=== PATIENT | female | born 1975 | race Two or more races ===

== ENCOUNTER 2022-09-25 21:36 | Emergency (ER) | payer OTHER ==
[~2022-09-25] VITALS: Ht 154.9 cm; Wt 61.7 kg
[~2022-09-25 21:36] MED LIST: COZAAR50 MG PO; PRENATAL1 TAB PO
[2022-09-25] MEDS ORDERED: LOSARTAN POTASS25 MG PO (22:02)
[2022-09-26] MEDS ORDERED: ONDANSETRON ODT4 MG PO (03:57)
[2022-09-26] MEDS ORDERED: LEVSIN/SL0.125 MG SL (03:57)
== END 2022-09-26 04:31 ==
LOC: ER 21:36
DX: R10.84 Generalized abdominal pain (principal); I10 Essential (primary) hypertension